=== PATIENT | male | born 1980 | race Caucasian/White ===

== ENCOUNTER 2017-02-27 17:15 | Emergency (ER) | payer OTHER ==
[~2017-02-27] VITALS: Ht 175.3 cm; Wt 83.0 kg
--- NOTE | 2017-02-27 17:57 | Emergency Room Report ---
History of Present Illness Time Seen by [id number] Presenting Problem in Triage Pt arrived:Walked Presenting Problem:RIGHT INDEX FINGER LACERATION Onset of symptoms date/time:02/27/17 or onset unknown for: Treatment Prior to Arrival: IRONER SOCK Provided by: Sepsis Risk Assessment: Temp: 98.3 B/P: 159/91 MAP: 113 Pulse: 85 Resp: 18 Recent fever? N Clinical Suspician of Infection? N Mental Status: 1 - Regular (Normal Baseline) Sepsis Risk:Low Sepsis Risk Have you (or family members/close friends) recently traveled outside the [place]? N If Yes, where/when: Have you had exposure to infectious disease within the past month? TB? Other? Specify: Comment The patient was working on a car this evening when he cut his RIGHT index finger on a radiator clamp. No numbness or weakness. Last tetanus shot greater than 5 years ago. ALLERGIES Coded Allergies: No Known Allergies (02/27/17) History Medical History General Angina: No ND: No Hypertension? No Hyperlipidemia? No CHF? No COPD? No Asthma? No Hernia? No CVA? No Seizures? No Diabetes? No UTI? No Stones? No GB Disease: No Hepatitis? No Cataracts? No Glaucoma? No TB? No Cancer? No Immunization Hx Ped.Immunizations UTD Yes DT/Tetanus Unknown Surgical Hx Previous Surgery?N Family History Family Hx Diabetes No CAD No Hypertension No Hyperlipidemia No Cancer No TB No Social History Smoking Hx Smoker: Current Every Day Smoker Tobacco: Yes Type Cigarettes Packs/day 1 1/2 - 2 Packs Alcohol Alcohol: Yes Review of Systems All Other Systems Reviewed and Negative Skin see HPI Psychiatric/Neurological denies numbness, denies weakness Physical Exam Vital Signs Vital Signs Date Time Temp Pulse Resp B/P Pulse O2 O2 Flow FiO2 Ox Delivery Rate 02/27 1851 85 18 142/76 98 02/27 1734 98.3 85 18 159/91 98 General Appearance normal appearance Respiratory Status No: respiratory distress. Cardiovascular regular rate/rhythm, normal peripheral pulses Extremities longitudinal laceration dorsal RIGHT index finger middle phalanx 3 cm., normal extensor tendon range of motion and strength. Normal neurovascular status. No visible foreign bodies or contamination. Neurologic alert, no motor/sensory deficits Medical Decision Making LABS/Meds/Orders Pt receiving controlled substance in ED? No Results/Orders Current Medication Orders Sig/Mejia Start time Last Medication Dose Route Stop Time Status Admin Diphtheria/Pertussis/ 0.5 ML ONCE ONE 02/27 1745 DC 02/27 Tetanus Vacc IM 02/27 174 1749 Bupivacaine HCl 0 .STK-MED ONE 02/27 1738 DC .ROUTE Diphtheria/Pertussis/ 0 .STK-MED ONE 02/27 1737 DC Tetanus Vacc IM Lidocaine HCl 0 .STK-MED ONE 02/27 1737 DC .ROUTE Procedures Laceration/Wound Repair Progress Laceration Repair Performed by: JHONATAN FERNANDEZ Consent: Verbal consent obtained. Risks and benefits: risks, benefits and alternatives were discussed Consent given by: patient Patient identity confirmed: verbally with patient Laceration location: RIGHT index finger Laceration length: 3 cm Local anesthetic: 0.5 percent bupivacaine digital block Wound prep: Sterilly scrubbed with Hibiclens and irrigated with copious normal saline. Draping: Sterile in usual manner Patient sedated: no Debridement: No Exploration: No deep structure injury or foreign body found. Layers Closed: Skin Suture material, skin: 5-0 Prolene Number of sutures: 6 Patient tolerance: Patient tolerated the procedure well with no immediate complications Departure Departure Disposition DC Home or Self Care(routine) Clinical Impression Primary Impression: Finger laceration Qualifiers: Encounter type: initial encounter Finger: index finger Damage to nail status: without damage Foreign body presence: without foreign body Laterality: right Qualified Code: S61.210A - Laceration without foreign body of right index finger without damage to nail, initial encounter Condition STABLE Patient Instructions DI for Laceration Repair Additional Instructions Additional instructions for HAND LACERATION: Clean the wound daily with soap and water. Avoid submerging the wound. No swimming.DO NOT USE any antibiotic ointment such as Neosporin, Polysporin, or triple antibiotic. This will delay healing. See your primary care physician or return to the [facility] in 10 days for suture removal. Return if any signs of infection including increasing pain, pus drainage, swelling, redness, red streaks, or fever. ED Critical Care Critical Care No at 2000
[2017-02-27 18:51] VITALS: BP 142/76
== END 2017-02-27 18:52 | disposition home or self-care (01) ==
LOC: ER 17:15
PROC: 0HQFXZZ Repair Right Hand Skin, External Approach (ICD-10-PCS; principal; 2017-02-27)
DX: S61.210A Laceration without foreign body of right index finger without damage to nail, initial encounter (principal); Z23 Encounter for immunization; W45.8XXA Other foreign body or object entering through skin, initial encounter; W22.8XXA Striking against or struck by other objects, initial encounter; Y92.009 Unspecified place in unspecified non-institutional (private) residence as the place of occurrence of the external cause

== ENCOUNTER → 2017-06-16 | Outpatient (CLI) | payer OTHER ==
--- NOTE | 2017-06-16 16:58 | RADIOLOGY REPORT PS360 ---
TOE-LT-5TH DIGIT(LITTLE)-3VIEW CLINICAL INDICATION: Pain and swelling CELLULITIS OF TOE, LEFT FOOT ORDERING PHYSICIAN: RONAK SYED PATIENT AGE: 37 years COMPARISON: None FINDINGS: No lytic changes apparent. No fracture or dislocation. No radio opaque foreign body. There is mild soft tissue swelling. No soft tissue gas. IMPRESSION: Soft tissue swelling otherwise negative left fifth toe
== END ==
LOC: RAD 15:48
DX: L03.032 Cellulitis of left toe (principal)